=== PATIENT | female | born 1935 | race Caucasian/White ===

== ENCOUNTER 2016-03-18 18:19 | Emergency (ER) | payer OTHER ==
[~2016-03-18] VITALS: Ht 157.5 cm; Wt 58.2 kg
[2016-03-18] MEDS ORDERED: PERCOCET 5/31 TABLET PO (22:55)
[2016-03-18 23:24] VITALS: BP 132/67
== END 2016-03-18 23:53 | disposition home or self-care (01) ==
LOC: EME 18:19
PROC: 2W3AX1Z Immobilization of Right Upper Arm using Splint (ICD-10-PCS; principal; 2016-03-18)
DX: S42.301A Unspecified fracture of shaft of humerus, right arm, initial encounter for closed fracture (principal); W10.8XXA Fall (on) (from) other stairs and steps, initial encounter; E78.5 Hyperlipidemia, unspecified; I10 Essential (primary) hypertension; G30.9 Alzheimer's disease, unspecified
CPT/HCPCS: 99281; 99284; J3010

== ENCOUNTER 2017-09-26 15:27 | Emergency (ER) | payer OTHER ==
[~2017-09-26] VITALS: Ht 160 cm; Wt 56.9 kg
[~2017-09-26 15:27] MED LIST: PERCOCET 5/31 TABLET PO
[2017-09-26 16:29] LABS: HEMATOCRIT 36.4 % (36.0-46.0); HEMOGLOBIN 11.6 G/DL (11.9-15.5); MCH 27.9 PG (29.0-34.0); MCHC 31.9 G/DL (30.0-36.0); MCV 87.5 FL (83-99); PLATELET COUNT 356 K/uL (156-360); RBC DIS.WIDTH-CV 14.4 % (11.8-14.6); RBC DIS.WIDTH-SD 46.5 % (39-53); RED BLOOD COUNT 4.16 M/uL (3.80-5.20); WHITE BLOOD COUNT 8.9 K/uL (4.1-10.2)
[2017-09-26 16:36] LABS: ALBUMIN 3.9 g/dL (3.2-4.8)
[2017-09-26 16:37] LABS: CHLORIDE 105 mEq/L (99-109); SODIUM 141 mEq/L (136-147)
[2017-09-26 16:39] LABS: GLUCOSE 108 mg/dL (70-99); TOTAL PROTEIN 7.3 g/dL (6.4-8.3)
[2017-09-26 16:41] LABS: TOTAL BILIRUBIN 0.3 mg/dL (0.0-1.0)
[2017-09-26 16:42] LABS: ALKALINE PHOSPHATASE 107 IU/L (3-129)
[2017-09-26 16:43] LABS: CREATININE 0.8 mg/dL (0.6-1.3); GFR ESTIMATE (CALCULATED) > 59 mL/min/
[2017-09-26 16:44] LABS: AST (GOT) 16 IU/L (2-34); UREA NITROGEN (BUN) 7 mg/dL (9-23)
[2017-09-26 16:46] LABS: ALT (GPT) 5 IU/L (3-49)
[2017-09-26 16:49] LABS: APPEARANCE CLEAR ((CLEAR)); BILIRUBIN NEGATIVE; BLOOD SMALL; COLOR YELLOW ((YELLOW)); GLUCOSE (STRIP) NEGATIVE; KETONES NEGATIVE; LEUKOCYTES LARGE; NITRITE POSITIVE; PROTEIN (STRIP) NEGATIVE; SPECIFIC GRAVITY 1.009 (1.000-1.030)
[2017-09-26 16:58] LABS: BACTERIA RARE /HPF; CALCIUM OXALATE CRYSTALS 1+ /HPF; EPITHELIAL CELLS RARE /HPF; MUCUS TRACE /LPF; UCUL ADDED? YES; WHITE BLOOD CELLS TNTC /HPF (0-5)
[2017-09-26] MEDS ORDERED: NITROFURANTOIN100 MG PO (18:30)
[2017-09-26] MEDS ORDERED: KENALOG,ARISTOC80 GM TP (18:30)
[2017-09-26 19:10] VITALS: BP 131/64
== END 2017-09-26 19:12 | disposition home or self-care (01) ==
LOC: EME 15:27
PROVIDERS: Emergency Medicine
DX: G30.9 Alzheimer's disease, unspecified (principal); F02.80 Dementia in other diseases classified elsewhere, unspecified severity, without behavioral disturbance, psychotic disturbance, mood disturbance, and anxiety; N39.0 Urinary tract infection, site not specified; R21 Rash and other nonspecific skin eruption; B35.1 Tinea unguium
CPT/HCPCS: 80053; 81003; 85027; 87077; 87086; 87186; 99281; 99285